=== PATIENT | male | born 1975 | race African-American/Black ===

== ENCOUNTER 2018-05-12 15:38 | Emergency (ER) | payer SELFPAY ==
[2018-05-12 16:14] LABS: ABSOLUTE EOSINOPHILS # (AUTO) 0.1 10^3/uL (0.0-0.6); ABSOLUTE LYMPHOCYTES (AUTO) 1.3 10^3/uL (0.5-4.7); ABSOLUTE MONOCYTES (AUTO) 0.4 10^3/uL (0.1-1.4); ABSOLUTE NEUT (AUTO) 1.9 10^3/uL (1.7-8.2); BASOPHILS % (AUTO) 0.8 % (0-2); EOSINOPHILS % (AUTO) 2.5 % (0-6); HEMOGLOBIN 14.4 g/dL (13.5-17.0); LYMPHOCYTES % (AUTO) 35.2 % (13-45); MEAN CORPUSCULAR HEMOGLOBIN 31.9 pg (27.0-33.4); MEAN CORPUSCULAR HGB CONC 34.3 g/dL (32.0-36.0); MEAN CORPUSCULAR VOLUME 93 fl (80-97); MONOCYTES % (AUTO) 10.9 % (3-13); PLATELET COUNT 230 10^3/uL (150-450); RED BLOOD COUNT 4.52 10^6/uL (4.35-5.55); RED CELL DISTRIBUTION WIDTH 13.4 % (11.5-14.0); SEGMENTED NEUTROPHILS % (AUTO) 50.6 % (42-78); TOTAL CELLS COUNTED % (AUTO) 100 %; WHITE BLOOD COUNT 3.8 10^3/uL (4.0-10.5)
[2018-05-12 16:23] LABS: INTERNATIONAL RATION (INR) 0.96; PROTHROMBIN TIME 13.3 SEC (11.4-15.4)
[2018-05-12 16:25] LABS: ALANINE AMINOTRANSFERASE 26 U/L (21-72); ALBUMIN 4.8 g/dL (3.5-5.0); ALKALINE PHOSPHATASE 71 U/L (38-126); ANION GAP 10 (5-19); ASPARTATE AMINO TRANSFERASE 35 U/L (17-59); BILIRUBIN,DIRECT 0.2 mg/dL (0.0-0.4); BILIRUBIN,TOTAL 0.7 mg/dL (0.2-1.3); BLOOD UREA NITROGEN 14 mg/dL (7-20); CARBON DIOXIDE 30 mmol/L (22-30); CHLORIDE 104 mmol/L (98-107); CREATINE KINASE 449 U/L (55-170); GLUCOSE 66 mg/dL (75-110); POTASSIUM 4.2 mmol/L (3.6-5.0); TOTAL PROTEIN 7.6 g/dL (6.3-8.2)
--- NOTE | 2018-05-12 16:29 | RADIOLOGY REPORT (SQ) ---
EXAM DESCRIPTION: CHEST SINGLE VIEW COMPLETED DATE/TIME: 05/12/2018 4:15 pm REASON FOR STUDY: cp COMPARISON: 07/04/2013 EXAM PARAMETERS: NUMBER OF VIEWS: One view. TECHNIQUE: Single frontal radiographic view of the chest acquired. RADIATION DOSE: NA LIMITATIONS: None. FINDINGS: LUNGS AND PLEURA: No opacities, masses or pneumothorax. No pleural effusion. MEDIASTINUM AND HILAR STRUCTURES: No masses. Contour normal. HEART AND VASCULAR STRUCTURES: Heart normal in size. Normal vasculature. BONES: No acute findings. HARDWARE: None in the chest. OTHER: No other significant finding. IMPRESSION: NO ACUTE RADIOGRAPHIC FINDING IN THE CHEST. TECHNICAL DOCUMENTATION: JOB ID: [id number] [employer]- All Rights Reserved Reading location - IP/workstation name: [email or web address]
[2018-05-12 16:37] LABS: CREATINE KINASE MB 5.09 ng/mL (<4.55)
[2018-05-12 16:38] LABS: TROPONIN I < 0.012 ng/mL
[2018-05-12] MEDS ORDERED: IPRATROPIUM/ALBUTEROL 0.5-2.5 MG/3 ML AMPUL NEB ONE (17:36)
--- NOTE | 2018-05-12 18:26 | ER Document Report ---
ED General - General Chief Complaint: Chest Pain Stated Complaint: CHEST PAIN/ARM PAIN Time Seen by Provider: 05/12/18 15:47 Primary Care Provider: LORI AGARWAL MD [ACTIVE STAFF] - 05/13/18 Mode of Arrival: Ambulatory Information source: Patient Notes: This is a 42-year-old man with no significant medical problems who presents to the emergency room with some left chest wall pain. Patient grabs the pain is sharp. He states it is worse when he raises his hands and stretches out his chest wall. He denies any significant shortness of breath. He denies any fever, abdominal pain. He denies any exertional pain. The pain started when he was at work. 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 He does state he has had this pain before in the past. Currently he does not have any pain. TRAVEL OUTSIDE OF THE [place] IN LAST 30 DAYS: No - HPI Onset: Just prior to arrival Onset/Duration: Gradual Quality of pain: Sharp Severity: Moderate Pain Level: Denies Associated symptoms: Chest pain. denies: Fever, Shortness of breath Exacerbated by: Movement Relieved by: Remaining still Similar symptoms previously: Yes Recently seen / treated by doctor: No - Related Data Allergies/Adverse Reactions: No Known Allergies Allergy (Verified 05/12/18 15:51) Past Medical History - General Information source: Patient - Social History Smoking Status: Current Every Day Smoker Cigarette use (# per day): Yes - 1 pack/day Chew tobacco use (# tins/day): No Smoking Education Provided: Yes - 5-10 minutes Frequency of alcohol use: None Drug Abuse: None Lives with: Family Family History: None, Other - Asthma Patient has suicidal ideation: No Patient has homicidal ideation: No - Medical History Medical History: Negative Renal/ Medical History: Denies: Hx Peritoneal Dialysis Surgical Hx: Negative - Immunizations Hx Diphtheria, Pertussis, Tetanus Vaccination: Yes Review of Systems - Review of Systems Constitutional: denies: Chills, Fever EENT: No symptoms reported Cardiovascular: See HPI Respiratory: No symptoms reported Gastrointestinal: No symptoms reported Genitourinary: No symptoms reported Male Genitourinary: No symptoms reported Musculoskeletal: See HPI Skin: No symptoms reported Hematologic/Lymphatic: No symptoms reported Neurological/Psychological: No symptoms reported Physical Exam - Vital signs Vitals: Temp Pulse Resp BP Pulse Ox 98.6 F 87 16 144/95 H 98 05/12/18 15:48 05/12/18 15:48 05/12/18 15:48 05/12/18 15:48 05/12/18 15:48 Notes: Physical exam: GENERAL: The 2-year-old man, alert and oriented x3, no acute distress. Vital signs are stable. He does have borderline high blood pressure. His oxygenation is 97% on room air. HEAD: Atraumatic, normocephalic. EYES: Pupils equal round and reactive to light, extraocular movements intact, sclera anicteric, conjunctiva are normal. ENT: TMs normal, nares patent, oropharynx clear without exudates. Moist mucous membranes. NECK: Normal range of motion, supple without obvious mass or JVD. LUNGS: Breath sounds clear to auscultation bilaterally and equal. No wheezes rales or rhonchi. Chest wall: Patient does have a little bit of tenderness in the left chest wall. HEART: Regular rate and rhythm without murmurs, rubs or gallops. ABDOMEN: Soft, normoactive bowel sounds. No tenderness to palpation. No guarding, no rebound. No masses appreciated. EXTREMITIES: Normal range of motion, no pitting or edema. No clubbing or cyanosis. NEUROLOGICAL: Cranial nerves II through XII grossly intact. Normal speech, moving all extremities. PSYCH: Normal mood, normal affect. SKIN: Warm, Dry, normal turgor, no rashes or lesions noted. Course - Re-evaluation Re-evalutation: 05/12/18 18:23 About a long discussion with the patient about smoking cessation. He is going to think about it. As far as his chest discomfort, a lot of this is musculoskeletal. He does have a borderline elevated blood pressure and he does smoke cigarettes. His heart score is 2 which is low risk. I did discuss the case with Dr. Agarwal who said he would have be happy to see the patient in his office for a stress test. He gave me his cell phone to give to the patient so that patient can call him tomorrow. - Vital Signs Vital signs: Temp Pulse Resp BP Pulse Ox 98.6 F 87 16 144/95 H 98 05/12/18 15:48 05/12/18 15:48 05/12/18 15:48 05/12/18 15:48 05/12/18 15:48 - Laboratory Result Diagrams: 05/12/18 16:04 05/12/18 16:04 Laboratory results interpreted by me: 05/12/18 05/12/18 05/12/18 16:04 16:04 16:04 WBC 3.8 L Glucose 66 L Creatine Kinase 449 H CK-MB (CK-2) 5.09 H - Diagnostic Test Radiology reviewed: Image reviewed, Reports reviewed - Chest x-ray shows no infiltrates - EKG Interpretation by Me Rate: Normal Rhythm: NSR - EKG shows normal sinus rhythm with a ventricular rate of 87, no acute ST-T wave changes Discharge - Discharge Clinical Impression: Chest wall pain, Borderline hypertension Condition: Stable Disposition: HOME, SELF-CARE Additional Instructions: As we discussed, I want you to call Dr. Agarwal ("Dr Oropeza") tomorrow at [phone] and leave a message on his cell phone. Tell him who you are and tell him that you are in the emergency room and Dr. Lundberg had called him and discussed the case on and the ER doctor wanted him seen for stress test. Otherwise, I want you to take it easy over the next few days. You can take an aspirin a day. You can also take some ibuprofen if you get chest wall discomfort. I want you to think about cutting down on the smoking for all the reasons that we talked about. Return to the emergency room if you think you are getting worse, starting have shortness of breath or worsening pain. Forms: Elevated Blood Pressure, Return to Work Referrals: LORI AGARWAL MD [ACTIVE STAFF] - 05/13/18
[2018-05-12 19:38] VITALS: BP 141/98
--- NOTE | 2018-05-12 19:52 | EKG REPORT ---
SEVERITY:- ABNORMAL ECG - SINUS RHYTHM LEFT AXIS DEVIATION LEFT VENTRICULAR HYPERTROPHY : Confirmed by: Hawk Patel MD 12-May-2018 19:51:24
== END 2018-05-12 19:38 | disposition home or self-care (01) ==
LOC: ER 15:38
DX: R07.89 Other chest pain (principal); R03.0 Elevated blood-pressure reading, without diagnosis of hypertension; F17.210 Nicotine dependence, cigarettes, uncomplicated; Z71.6 Tobacco abuse counseling
CPT/HCPCS: 93005; 99406; 94640; 99284; 36415; 82553; 82550; 85025; 85610; 80053; 84484; 71045; 93010; J7620

== ENCOUNTER 2018-05-23 06:14 | Emergency (ER) | payer SELFPAY ==
[2018-05-23] MEDS ORDERED: ASPIRIN 81 MG TABLET, CHEWABLE PO ONE (06:40)
[2018-05-23 06:50] LABS: ABSOLUTE EOSINOPHILS # (AUTO) 0.1 10^3/uL (0.0-0.6); ABSOLUTE LYMPHOCYTES (AUTO) 1.4 10^3/uL (0.5-4.7); ABSOLUTE MONOCYTES (AUTO) 0.5 10^3/uL (0.1-1.4); ABSOLUTE NEUT (AUTO) 2.8 10^3/uL (1.7-8.2); BASOPHILS % (AUTO) 0.8 % (0-2); HEMATOCRIT 43.1 % (37.9-51.0); HEMOGLOBIN 14.6 g/dL (13.5-17.0); LYMPHOCYTES % (AUTO) 28.6 % (13-45); MEAN CORPUSCULAR HEMOGLOBIN 31.2 pg (27.0-33.4); MEAN CORPUSCULAR VOLUME 92 fl (80-97); MONOCYTES % (AUTO) 9.5 % (3-13); PLATELET COUNT 220 10^3/uL (150-450); RED CELL DISTRIBUTION WIDTH 13.1 % (11.5-14.0); SEGMENTED NEUTROPHILS % (AUTO) 58.1 % (42-78); TOTAL CELLS COUNTED % (AUTO) 100 %; WHITE BLOOD COUNT 4.9 10^3/uL (4.0-10.5)
--- NOTE | 2018-05-23 06:57 | EKG REPORT ---
SEVERITY:- ABNORMAL ECG - SINUS RHYTHM LEFT VENTRICULAR HYPERTROPHY : Confirmed by: David Watkins 23-May-2018 06:57:30
[2018-05-23 07:14] LABS: ALANINE AMINOTRANSFERASE 50 U/L (21-72); ALBUMIN 4.7 g/dL (3.5-5.0); ALKALINE PHOSPHATASE 75 U/L (38-126); ANION GAP 10 (5-19); ASPARTATE AMINO TRANSFERASE 50 U/L (17-59); BILIRUBIN,DIRECT 0.2 mg/dL (0.0-0.4); BILIRUBIN,TOTAL 1.1 mg/dL (0.2-1.3); BLOOD UREA NITROGEN 13 mg/dL (7-20); CALCIUM 9.4 mg/dL (8.4-10.2); CARBON DIOXIDE 26 mmol/L (22-30); CHLORIDE 106 mmol/L (98-107); CREATINE KINASE 472 U/L (55-170); GLUCOSE 114 mg/dL (75-110); POTASSIUM 3.8 mmol/L (3.6-5.0); TOTAL PROTEIN 7.5 g/dL (6.3-8.2)
--- NOTE | 2018-05-23 07:18 | RADIOLOGY REPORT (SQ) ---
EXAM DESCRIPTION: XR CHEST 1 VIEW COMPLETED DATE/TME: 05/23/2018 06:40 CLINICAL HISTORY: chest pain COMPARISON: 05/12/2018 FINDINGS: Single frontal view of the chest. Leads overlie the chest. The cardiomediastinal silhouette has normal size and contour. No consolidation, pneumothorax, or pleural effusion. No displaced rib fractures identified. Upper abdominal soft tissues are unremarkable. IMPRESSION: 1. No acute pulmonary process identified.
[2018-05-23 07:20] LABS: CREATINE KINASE MB 5.07 ng/mL (<4.55); TROPONIN I < 0.012 ng/mL
[2018-05-23] MEDS ORDERED: NORMAL SALINE 1000 ML 1,000 ML IV ONE (07:37)
--- NOTE | 2018-05-23 10:33 | ER Document Report ---
ED General - General Chief Complaint: Chest Pain Stated Complaint: CHEST PAIN Time Seen by Provider: 05/23/18 07:10 Primary Care Provider: LORI AGARWAL MD [ACTIVE STAFF] - Follow up as needed SONYA GARSIA MD [ACTIVE STAFF] - Follow up as needed Notes: Patient is a 42-year-old male presents the emergency department complaining of generalized left chest pain. Patient states he was to this facility a few days ago for the same. States he was told to follow-up with cardiology and he has not. Patient states the pain in his left chest has been intermittent ever since. 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 Patient states this morning the pain was constant which is why he presents to the emergency room. Patient is currently pain-free at this time. Patient denies any shortness of breath or diaphoresis during these episodes. Past medical history: Hypertension Medications: None Allergies: None Patient states he believes that his biological father at age 45 from a myocardial infarction. Patient is also admitting to being a daily smoker. TRAVEL OUTSIDE OF THE [place] IN LAST 30 DAYS: No - Related Data Allergies/Adverse Reactions: No Known Allergies Allergy (Verified 05/23/18 06:46) Past Medical History - General Information source: Patient - Social History Smoking Status: Current Every Day Smoker Frequency of alcohol use: None Drug Abuse: None Family History: CAD, Other - Asthma Patient has suicidal ideation: No Patient has homicidal ideation: No Renal/ Medical History: Denies: Hx Peritoneal Dialysis - Immunizations Hx Diphtheria, Pertussis, Tetanus Vaccination: Yes Review of Systems - Review of Systems Constitutional: No symptoms reported EENT: No symptoms reported Cardiovascular: See HPI Respiratory: See HPI. denies: Cough, Short of breath Gastrointestinal: No symptoms reported Genitourinary: No symptoms reported Male Genitourinary: No symptoms reported Musculoskeletal: See HPI Skin: No symptoms reported Hematologic/Lymphatic: No symptoms reported Neurological/Psychological: No symptoms reported Physical Exam - Vital signs Vitals: Pulse Resp BP Pulse Ox 78 16 166/100 H 100 05/23/18 06:15 05/23/18 06:15 05/23/18 06:15 05/23/18 06:15 - Notes Notes: GENERAL: Alert, interacts well. No acute distress. HEAD: Normocephalic, atraumatic. EYES: Pupils equal, round, and reactive to light. Extraocular movements intact. ENT: Oral mucosa moist, tongue midline. NECK: Full range of motion. Supple. Trachea midline. LUNGS: Clear to auscultation bilaterally, no wheezes, rales, or rhonchi. No respiratory distress. HEART: Regular rate and rhythm. No murmur Chest: No crepitus felt, no ecchymosis or erythema noted anterior posterior chest wall. ABDOMEN: Soft, non-tender. Non-distended. Bowel sounds present in all 4 quadrants. EXTREMITIES: Moves all 4 extremities spontaneously. No edema, normal radial and dorsalis pedis pulses bilaterally. No cyanosis. BACK: no cervical, thoracic, lumbar midline tenderness. No saddle anesthesia, normal distal neurovascular exam. NEUROLOGICAL: Alert and oriented x3. Normal speech. cranial nerves II through XII grossly intact PSYCH: Normal affect, normal mood. SKIN: Warm, dry, normal turgor. No rashes or lesions noted. Course - Re-evaluation Re-evalutation: 05/23/18 10:30 Patient is a 42-year-old male presents the emergency department for what appears to be musculoskeletal left chest pain. Patient is currently chest pain-free at this time. When patient does move his arms up and down the pain does return and also hurts upon deep palpation of the left intercostal muscle region. Reviewing past patient charts it is known in that the provider that saw the patient did speak with Dr. Khan about an outpatient stress test. Discussed following up with Dr. Berger and his personal phone number was given to the patient. Patient continues to state that he has not tried to call cardiology because "a lot is going on in my life." Patient continues to be chest pain-free at this time. In looking back at Previous visits patient was always hypertensive upon arrival to the emergency room. Discussed use of amlodipine for his relative hypertension and need to follow-up with a primary care provider. Patient states he does have insurance so primary care providers phone numbers will be provided for him. Discussed his need to quit smoking. Patient states he understands but most likely will not quit smoking. Patient's current heart score is a 1 due to his hypertension and family history. Patient's story and physical exam is consistent with a musculoskeletal chest pain. Patient's EKG shows no ST segment elevations or depressions. Patient has had 2 troponins in the emergency room and they were both negative. Patient was treated with a liter of normal saline solution for his increase in CK. Discussed this case with my attending Dr. Ashton who suggested starting the patient on amlodipine discussing with him close follow-up with cardiology. Patient voices understanding and is stable for discharge. 05/23/18 10:37 Patient's initial EKG shows a sinus rhythm rate of 77, QTc 453, with left ventricular hypertrophy noted. No ST segment elevations or depressions noted Patient's repeat EKG done along with repeat troponin continues to show sinus rhythm with a rate of 72 with a QTC 478, left ventricular hypertrophy, no ST segment elevations or depressions noted. Patient continues with inverted T waves in inferior leads, Discussed with Dr. Ashton who continues to recommend Norvasc and f/u out pt with Cardiology. - Vital Signs Vital signs: Temp Pulse Resp BP Pulse Ox 78 20 145/98 H 100 05/23/18 06:15 05/23/18 10:01 05/23/18 10:00 05/23/18 10:01 - Laboratory Result Diagrams: 05/23/18 06:34 05/23/18 06:34 Laboratory results interpreted by me: 05/23/18 05/23/18 06:34 06:34 Glucose 114 H Creatine Kinase 472 H CK-MB (CK-2) 5.07 H Discharge - Discharge Clinical Impression: Chest pain Qualifiers: Chest pain type: unspecified Qualified Code(s): R07.9 - Chest pain, unspecified Hypertension Qualifiers: Hypertension type: unspecified Qualified Code(s): I10 - Essential (primary) hypertension Condition: Stable Disposition: HOME, SELF-CARE Instructions: Chest Pain of Unclear Cause ([facility]), High Blood Pressure ([facility]) Additional Instructions: As we discussed you have been seen and treated in the emergency department for your left chest pain. 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 His information will be provided in this packet. It is also important that you take medications as prescribed and follow-up with her primary care provider. It is also important that you quit smoking. Please make sure you have proper follow-up and please return to the emergency room should you have any other concerning symptoms. Prescriptions: Amlodipine Besylate [Norvasc 2.5 mg Tablet] 2.5 mg PO DAILY #30 tablet Forms: Elevated Blood Pressure, Return to Work Referrals: LORI AGARWAL MD [ACTIVE STAFF] - Follow up as needed SONYA GARSIA MD [ACTIVE STAFF] - Follow up as needed
[2018-05-23 10:34] VITALS: BP 145/98
--- NOTE | 2018-05-23 23:20 | EKG REPORT ---
SEVERITY:- ABNORMAL ECG - SINUS RHYTHM LEFT AXIS DEVIATION LEFT VENTRICULAR HYPERTROPHY NONSPECIFIC T ABNORMALITIES, INFERIOR LEADS BORDERLINE PROLONGED QT INTERVAL : Confirmed by: Deya Gray MD 23-May-2018 23:20:33
== END 2018-05-23 10:54 | disposition home or self-care (01) ==
LOC: ER 06:14
DX: R07.9 Chest pain, unspecified (principal); I10 Essential (primary) hypertension; F17.200 Nicotine dependence, unspecified, uncomplicated; J45.909 Unspecified asthma, uncomplicated
CPT/HCPCS: 93005; 99285; 96360; 36415; 82553; 82550; 85025; 80053; 84484; 71045; 93010; J7030

== ENCOUNTER 2019-02-28 06:41 | Emergency (ER) | payer OTHER ==
--- NOTE | 2019-02-28 08:46 | ER Document Report ---
ED Hand/Wrist Injury - General Chief Complaint: Wrist Pain Stated Complaint: FALL-RIGHT WRIST PAIN Information source: Patient TRAVEL OUTSIDE OF THE [place] IN LAST 30 DAYS: No - HPI Injury to: Wrist. No: Arm, Elbow, Forearm, Hand, Palm, Thumb, Index finger, Middle finger, Ring finger, Small finger Onset: Yesterday Where: Work. No: Home, Indoors, Neighbor's, Half-Way, Outdoors, Public place, School, Sports, Other Timing: Constant. No: Waxing and waning, Still present, Gone now, Better, Worse, Location changes Quality of pain: Achy. denies: No pain, Burning, Cramping, Dull, Fullness, Pressure, Sharp, Stabbing, Throbbing, Other Severity: Moderate Pain Level: 2 Context: Blow, Fall - Related Data Allergies/Adverse Reactions: No Known Allergies Allergy (Verified 02/28/19 08:16) Past Medical History - Social History Smoking Status: Current Every Day Smoker Chew tobacco use (# tins/day): No Frequency of alcohol use: None Drug Abuse: None Family History: CAD, Other - Asthma Patient has suicidal ideation: No Patient has homicidal ideation: No - Past Medical History Cardiac Medical History: Reports: Hx Hypertension Renal/ Medical History: Denies: Hx Peritoneal Dialysis - Immunizations Hx Diphtheria, Pertussis, Tetanus Vaccination: Yes Review of Systems - Review of Systems Constitutional: denies: No symptoms reported, See HPI, Chills, Diaphoresis, Fever, Malaise, Weakness, Other, Weight gain, Weight loss, Recent illness Musculoskeletal: Joint pain. denies: No symptoms reported, See HPI, Back pain, Gout, Joint swelling, Muscle pain, Muscle stiffness, Neck pain, Deformity, Leg swelling, Ankle swelling, Other -: Yes All other systems reviewed and negative Physical Exam - Vital signs Notes: Right upper extremity: Pain over the distal ulna and radius. Pain in the anatomical snuffbox. Range of motion in the hands with some swelling noted over the hand but no pain to palpation pain proximal to this. Neuro patient is neurovascularly intact good pulses radial and ulnar normal sensation to light touch and pain in all roots of the hand normal flexion extension thumb to small finger opposition interosseous strength and movement. Course - Diagnostic Test Radiology reviewed: Image reviewed, Reports reviewed Discharge - Discharge Clinical Impression: Right wrist sprain Qualifiers: Encounter type: initial encounter Qualified Code(s): S63.501A - Unspecified sprain of right wrist, initial encounter Condition: Stable Disposition: HOME, SELF-CARE Instructions: Wrist Sprain ([facility]) Additional Instructions: Ice and a towel for 20 minutes 3 times a day if pain persists forth more than 2 days return for re-x-ray. Prescriptions: Diclofenac Sodium 75 mg PO Q12 PRN #30 tablet.dr SMART Reason: Pain Scale Of 3 Forms: Return to Work
--- NOTE | 2019-02-28 09:47 | RADIOLOGY REPORT (SQ) ---
EXAM DESCRIPTION: WRIST RIGHT 3 VIEWS COMPLETED DATE/TIME: 02/28/2019 9:16 am REASON FOR STUDY: fall, pain COMPARISON: None. NUMBER OF VIEWS: Three views. TECHNIQUE: AP, lateral, and oblique radiographic images acquired of the right wrist. LIMITATIONS: None. FINDINGS: MINERALIZATION: Normal. BONES: No acute fracture or dislocation. No worrisome bone lesions. Normal alignment. SOFT TISSUES: Mild soft tissue swelling about the wrist. No radiopaque foreign body. OTHER: No other significant finding. IMPRESSION: Mild soft tissue swelling about the wrist without evidence of acute bony abnormality. TECHNICAL DOCUMENTATION: JOB ID: [id number] [employer]- All Rights Reserved Reading location - IP/workstation name: [email or web address]
[2019-02-28 11:11] VITALS: BP 139/81
== END 2019-02-28 11:19 | disposition home or self-care (01) ==
LOC: ER 06:41
DX: S63.501A Unspecified sprain of right wrist, initial encounter (principal); M79.89 Other specified soft tissue disorders; W17.89XA Other fall from one level to another, initial encounter; F17.200 Nicotine dependence, unspecified, uncomplicated; I10 Essential (primary) hypertension
CPT/HCPCS: 73110; L3908; 99283

== ENCOUNTER 2019-06-12 21:10 | Emergency (ER) | payer SELFPAY ==
[2019-06-12] MEDS ORDERED: MAG HYDROX/AL HYDROX/SIMETH SUSP 30 ML UDCUP PO ONE (22:16)
[2019-06-12] MEDS ORDERED: ONDANSETRON 4 MG TAB.RAPDIS PO ONE (22:16)
[2019-06-12] MEDS ORDERED: METOCLOPRAMIDE HCL ORAL SOLN 10 MG/10 ML UDCUP PO ONE (22:16)
[2019-06-12] MEDS ORDERED: LIDOCAINE 2% VISCOUS SOLN 15 ML UDCUP PO ONE (22:16)
[2019-06-12] MEDS ORDERED: ONDANSETRON ODT 4 MG TAB (6 TAB/ER DISP) PO PRN (22:17)
[2019-06-12] MEDS ORDERED: IBUPROFEN 800 MG TABLET PO ONE (22:17)
--- NOTE | 2019-06-12 23:51 | ER Document Report ---
HPI - HPI Time Seen by Provider: 06/12/19 22:08 Pain Level: 5 Notes: Patient is a 43-year-old male presenting to the emergency department with abdominal pain, nausea, vomiting, diarrhea and low-grade fever. He presents with his 2 children who also have nausea vomiting and diarrhea. He reports abdominal pain only comes on when he is about to vomit or have diarrhea. He reports he has had a fever at home but he is not sure what the actual temperature was. He has not taken any medications for symptoms. He reports he has probably vomited 3-4 times today and has had 3-4 episodes of diarrhea. - REPRODUCTIVE Reproductive: DENIES: : Past Medical History - General Information source: Patient - Social History Smoking Status: Current Every Day Smoker Chew tobacco use (# tins/day): No Frequency of alcohol use: Rare Drug Abuse: None Family History: CAD, Other - Asthma Patient has suicidal ideation: No Patient has homicidal ideation: No - Past Medical History Cardiac Medical History: Reports: Hx Hypertension Renal/ Medical History: Denies: Hx Peritoneal Dialysis - Immunizations Hx Diphtheria, Pertussis, Tetanus Vaccination: Yes Vertical Provider Document - CONSTITUTIONAL Notes: PHYSICAL EXAMINATION: GENERAL: Well-appearing, well-nourished and in no acute distress. HEAD: Atraumatic, normocephalic. EYES: Pupils equal round and reactive to light, extraocular movements intact, sclera anicteric, conjunctiva are normal. ENT: Nares patent, oropharynx clear without exudates. Moist mucous membranes. NECK: Normal range of motion, supple without lymphadenopathy LUNGS: Breath sounds clear to auscultation bilaterally and equal. No wheezes rales or rhonchi. HEART: Regular rate and rhythm without murmurs ABDOMEN: Soft, nontender, nondistended abdomen. No guarding, no rebound. No masses appreciated. Musculoskeletal: Normal range of motion, no pitting or edema. No cyanosis. NEUROLOGICAL: Cranial nerves grossly intact. Normal speech, normal gait. Normal sensory, motor exams PSYCH: Normal mood, normal affect. SKIN: Warm, Dry, normal turgor, no rashes or lesions noted. - INFECTION CONTROL TRAVEL OUTSIDE OF THE [place] IN LAST 30 DAYS: No Course - Re-evaluation Re-evalutation: Patient with likely viral gastroenteritis considering that patient's 2 children are with him and also sick with similar symptoms. He appears well, nontoxic. He does have a temperature of 99.3 here. He does report some pain in the esophageal area that feels like a burning pain. This is likely due to vomiting. He will be given a GI cocktail and as long as his symptoms resolve he will be discharged home on Zofran. Patient is agreeable to this plan. - Vital Signs Vital signs: Temp Pulse Resp BP Pulse Ox 99.0 F 113 H 20 132/83 H 95 06/12/19 21:16 06/12/19 21:16 06/12/19 21:16 06/12/19 21:16 06/12/19 21:16 - EKG Interpretation by Fl EKG shows normal: Sinus rhythm - No ST segment elevations or depressions to suggest ischemia Rate: Tachycardia - rate 100 [place]/QRS: Left axis deviation Discharge - Discharge Clinical Impression: Gastritis, Gastroenteritis Condition: Stable Disposition: HOME, SELF-CARE Additional Instructions: You have been seen in the Emergency Department (ED) today for nausea and vomiting. Your symptoms today are most likely due to a virus. Please purchase [id number] omeprazole and take 1 tablet in the morning and 1 tablet in the evening for the next several days to help with the burning in your chest. You have been prescribed Zofran; please use as prescribed as needed for your nausea. Follow up with your doctor as soon as possible regarding today's emergent visit and your symptoms of nausea. Return to the Emergency Department (ED) if you develop abdominal pain, bloody vomiting, bloody diarrhea, if you are unable to tolerate fluids due to vomiting, or if you develop other symptoms that concern you. Prescriptions: Ondansetron [Zofran Odt 4 mg Tablet] 1 - 2 tab PO Q4H PRN #15 tab.rapdis PRN Reason: For Nausea/Vomiting Forms: Return to Work, Treatment of Relative/Child
[2019-06-12 23:54] VITALS: BP 117/81
--- NOTE | 2019-06-13 06:48 | EKG REPORT ---
SEVERITY:- ABNORMAL ECG - SINUS TACHYCARDIA PROBABLE LEFT ATRIAL ABNORMALITY LEFT AXIS DEVIATION LEFT VENTRICULAR HYPERTROPHY : Confirmed by: Hawk Patel MD 13-Jun-2019 06:48:00
== END 2019-06-12 23:50 | disposition home or self-care (01) ==
LOC: ER 21:10
DX: K29.70 Gastritis, unspecified, without bleeding (principal); K52.9 Noninfective gastroenteritis and colitis, unspecified; R10.9 Unspecified abdominal pain; R11.2 Nausea with vomiting, unspecified; R50.9 Fever, unspecified; F17.200 Nicotine dependence, unspecified, uncomplicated; I10 Essential (primary) hypertension
CPT/HCPCS: 93005; 99284; 93010; S0119; J3490

== ENCOUNTER 2020-01-26 01:03 | Emergency (ER) | payer SELFPAY ==
--- NOTE | 2020-01-26 01:32 | ER Document Report ---
ED Medical Screen (RME) - General Chief Complaint: Rib Pain Stated Complaint: RIGHT RIB PAIN/SHORTNESS OF BREATH Time Seen by Provider: 01/26/20 01:30 Mode of Arrival: Ambulatory Information source: Patient Notes: 44-year-old -[place] male coming in today with right-sided chest pain. No trauma. Tonight having pain in the right anterior ribs but also having pressure in the left upper chest with some mild associated shortness of breath. General exam: Looks uncomfortable Chest: Right anterior chest wall tenderness to palpation. No crepitus. Cardiac regular rate and rhythm Pulmonary clear to auscultation Abdomen nontender Neuro no focal deficits I have greeted and performed a rapid initial assessment of this patient. A comprehensive ED assessment and evaluation of the patient, analysis of test results and completion of the medical decision making process will be conducted by additional ED providers. TRAVEL OUTSIDE OF THE [place] IN LAST 30 DAYS: No - Related Data Allergies/Adverse Reactions: No Known Allergies Allergy (Verified 01/26/20 01:27) Past Medical History - Past Medical History Cardiac Medical History: Reports: Hx Hypertension Renal/ Medical History: Denies: Hx Peritoneal Dialysis - Immunizations Hx Diphtheria, Pertussis, Tetanus Vaccination: Yes Physical Exam - Vital signs Vitals: Temp Pulse Resp BP Pulse Ox 98.6 F 106 H 13 121/68 98 01/26/20 01:08 01/26/20 01:08 01/26/20 01:08 01/26/20 01:08 01/26/20 01:08 Course - Vital Signs Vital signs: Temp Pulse Resp BP Pulse Ox 98.6 F 106 H 13 121/68 98 01/26/20 01:08 01/26/20 01:08 01/26/20 01:08 01/26/20 01:08 01/26/20 01:08
[2020-01-26 06:10] LABS: ABSOLUTE EOSINOPHILS # (AUTO) 0.1 10^3/uL (0.0-0.6); ABSOLUTE LYMPHOCYTES (AUTO) 1.4 10^3/uL (0.5-4.7); ABSOLUTE MONOCYTES (AUTO) 0.5 10^3/uL (0.1-1.4); ABSOLUTE NEUT (AUTO) 1.9 10^3/uL (1.7-8.2); BASOPHILS % (AUTO) 0.8 % (0-2); EOSINOPHILS % (AUTO) 2.5 % (0-6); HEMATOCRIT 41.9 % (37.9-51.0); HEMOGLOBIN 14.3 g/dL (13.5-17.0); LYMPHOCYTES % (AUTO) 35.8 % (13-45); MEAN CORPUSCULAR HEMOGLOBIN 32.1 pg (27.0-33.4); MEAN CORPUSCULAR HGB CONC 34.2 g/dL (32.0-36.0); MEAN CORPUSCULAR VOLUME 94 fl (80-97); MONOCYTES % (AUTO) 11.7 % (3-13); PLATELET COUNT 216 10^3/uL (150-450); RED BLOOD COUNT 4.47 10^6/uL (4.35-5.55); RED CELL DISTRIBUTION WIDTH 13.3 % (11.5-14.0); SEGMENTED NEUTROPHILS % (AUTO) 49.2 % (42-78); TOTAL CELLS COUNTED % (AUTO) 100 %; WHITE BLOOD COUNT 3.9 10^3/uL (4.0-10.5)
[2020-01-26 06:27] LABS: ALBUMIN 4.6 g/dL (3.5-5.0); ALKALINE PHOSPHATASE 70 U/L (38-126); ANION GAP 13 (5-19); ASPARTATE AMINO TRANSFERASE 37 U/L (17-59); BILIRUBIN,DIRECT 0.2 mg/dL (0.0-0.4); BILIRUBIN,TOTAL 0.4 mg/dL (0.2-1.3); BLOOD UREA NITROGEN 15 mg/dL (7-20); CALCIUM 9.6 mg/dL (8.4-10.2); CARBON DIOXIDE 23 mmol/L (22-30); CHLORIDE 106 mmol/L (98-107); CREATINE KINASE 459 U/L (55-170); GLUCOSE 117 mg/dL (75-110); POTASSIUM 4.2 mmol/L (3.6-5.0); TOTAL PROTEIN 7.3 g/dL (6.3-8.2)
[2020-01-26 06:39] LABS: CREATINE KINASE MB 5.93 ng/mL (<4.55)
[2020-01-26 06:44] LABS: TROPONIN I < 0.012 ng/mL
--- NOTE | 2020-01-26 07:27 | RADIOLOGY REPORT (SQ) ---
CHEST X-RAY 2 view on 01/26/2020 at 7:09 AM CLINICAL INDICATION: Cough, bilateral rib pain COMPARISON: 05/23/2018 FINDINGS: The lungs are clear. Probable nipple shadow is noted on the left. Consider repeat PA view with nipple markers. Cardiac, hilar and mediastinal contours are within normal limits. Pulmonary vascularity is within normal limits. No bony abnormality is noted. IMPRESSION: Probable nipple shadow on the left, consider repeat PA view with nipple markers. Otherwise no acute disease.
--- NOTE | 2020-01-26 10:43 | ER Document Report ---
Entered by YARITZA GALLEGOS SCRIBE 01/26/20 0656 Acting as scribe for:YAQUELIN SYLVESTER MD ED General - General Chief Complaint: Rib Pain Stated Complaint: RIGHT RIB PAIN/SHORTNESS OF BREATH Time Seen by Provider: 01/26/20 01:30 Primary Care Provider: ELIZ SCOTT [Primary Care Provider] - Follow up as needed Mode of Arrival: Ambulatory Information source: Patient, Relative - Notes: This 44 year old male patient presents to the ED today with complaints of right rib pain and left-sided chest pain that started x2 weeks ago. Patient states that his ribs hurt and he becomes short of breath when he lays on his right side. 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 He notes that the pain comes and goes and lasts for approximately x30-45 minutes at a time. He denies any chest pain at this time, but does report a headache. Denies recent injury, fever, chills, abdominal pain, sore throat, dizziness, sick contacts, of known COVID exposure. at bedside reports that she made the patient come in last night because he was complaining of a numbing/tingling sensation when he laid on his right side. She also mentions that the patient had some nausea/vomiting since being in the department and that he has been having "coughing spells for weeks." He is a current every day smoker and has a history of hypertension. No medications or known allergies. TRAVEL OUTSIDE OF THE [place] IN LAST 30 DAYS: No - Related Data Allergies/Adverse Reactions: No Known Allergies Allergy (Verified 01/26/20 01:27) Past Medical History - General Information source: Patient - Social History Smoking Status: Current Every Day Smoker Smoking Education Provided: No Frequency of alcohol use: Occasional Drug Abuse: None Lives with: Spouse/Significant other Family History: Reviewed & Not Pertinent, CAD, Other - Asthma Patient has suicidal ideation: No Patient has homicidal ideation: No - Past Medical History Cardiac Medical History: Reports: Hx Hypertension - Immunizations Hx Diphtheria, Pertussis, Tetanus Vaccination: Yes Review of Systems - Review of Systems Constitutional: See HPI. denies: Chills, Fever EENT: See HPI. denies: Throat pain Cardiovascular: See HPI, Chest pain. denies: Dizziness Respiratory: See HPI, Short of breath, Other - Right rib pain Gastrointestinal: See HPI, Nausea, Vomiting. denies: Abdominal pain Genitourinary: No symptoms reported Male Genitourinary: No symptoms reported Musculoskeletal: No symptoms reported Skin: No symptoms reported Hematologic/Lymphatic: No symptoms reported Neurological/Psychological: See HPI, Headaches, Numbness, Tingling -: Yes All other systems reviewed and negative Physical Exam - Vital signs Vitals: Temp Pulse Resp BP Pulse Ox 98.6 F 106 H 13 121/68 98 01/26/20 01:08 01/26/20 01:08 01/26/20 01:08 01/26/20 01:08 01/26/20 01:08 - General General appearance: Alert In distress: None - HEENT Head: Normocephalic, Atraumatic Eyes: Normal Extraocular movements intact: Yes Pupils: PERRL Tympanic membrane: Normal. No: Bulging, Injected, Serous effusion Sinus: Normal. No: Tenderness Pharynx: Normal. No: Erythema Neck: Normal, Supple - Respiratory Respiratory status: No respiratory distress Breath sounds: Normal Chest palpation: Tender - Mild right lower rib tenderness to palpation - Cardiovascular Rhythm: Regular Heart sounds: Normal auscultation, S1 appreciated, S2 appreciated Murmur: No Friction rub: No Gallop: None auscultated - Abdominal Inspection: Normal Distension: No distension Bowel sounds: Normal Tenderness: Nontender - Abdomen soft Organomegaly: No organomegaly - Back Back: Normal, Nontender. No: CVA tenderness - Extremities General upper extremity: Normal inspection General lower extremity: Normal inspection. No: Edema - Neurological Neuro grossly intact: Yes Orientation: AAOx4 [place] Coma Scale Eye Opening: Spontaneous [place] Coma Scale Verbal: Oriented [place] Coma Scale Motor: Obeys Commands [place] Coma Scale Total: 15 - Psychological Associated symptoms: Normal affect, Normal mood - Skin Skin Temperature: Warm Skin Moisture: Dry Skin Color: Normal Course - Re-evaluation Re-evalutation: 01/26/20 10:36 Patient resting comfortably not showing any signs of distress. - Vital Signs Vital signs: Temp Pulse Resp BP Pulse Ox 98.6 F 106 H 20 145/99 H 96 01/26/20 01:08 01/26/20 01:08 01/26/20 08:01 01/26/20 08:00 01/26/20 08:01 01/26/20 10:37 Patient has elevated blood pressure due to noncompliance of medications. Patient states he has no doctor and has no current prescription for antihypertensive medications. - Laboratory Result Diagrams: 01/26/20 05:57 01/26/20 05:57 Laboratory results interpreted by me: 01/26/20 01/26/20 01/26/20 05:57 05:57 05:57 WBC 3.9 L Glucose 117 H Creatine Kinase 459 H CK-MB (CK-2) 5.93 H 01/26/20 10:37 Laboratories and elevated CPK at 459 with a CK-MB of 5.9. Patient's glucose is 117 patient has a borderline low white blood cell count 3.9. 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 Denies any trauma that occurred at work. Patient's troponin has been negative x2 EKG does not show any acute ST elevations consistent with any STEMI. - Diagnostic Test Radiology reviewed: Image reviewed, Reports reviewed Radiology results interpreted by me: 01/26/20 10:38 Chest X-Ray 01/26/20 06:58 IMPRESSION: Probable nipple shadow on the left, consider repeat PA view with nipple markers. Otherwise no acute disease. Patient has a chest x-ray shows no acute process. - EKG Interpretation by Me Additional EKG results interpreted by me: 01/26/20 10:39 Twelve-lead EKG shows a normal sinus rhythm rate of 89. Left axis deviation noted and left ventricular hypertrophy with repull changes noted. Anterior Q waves due to left ventricular hypertrophy. OK interval QRS interval and QT interval all within normal limits. No acute STEMI noted. Discharge - Discharge Clinical Impression: Acute chest wall pain, Hypertension Condition: Stable Disposition: HOME, SELF-CARE Instructions: Chest Wall Pain ([facility]), Anti-Inflammatory Medication ([facility]) Prescriptions: Ibuprofen [Motrin 800 mg Tablet] 800 mg PO Q8H PRN #21 tablet PRN Reason: pain Amlodipine Besylate [Norvasc 2.5 mg Tablet] 2.5 mg PO DAILY #30 tablet Forms: Elevated Blood Pressure, Return to Work Referrals: LOCALMD,NO [Primary Care Provider] - Follow up as needed I personally performed the services described in the documentation, reviewed and edited the documentation which was dictated to the scribe in my presence, and it accurately records my words and actions.
[2020-01-26 10:52] VITALS: BP 154/95
--- NOTE | 2020-01-26 18:07 | EKG REPORT ---
SEVERITY:- ABNORMAL ECG - SINUS RHYTHM PROBABLE LEFT ATRIAL ABNORMALITY LEFT AXIS DEVIATION LEFT VENTRICULAR HYPERTROPHY ANTERIOR Q WAVES, POSSIBLY DUE TO [facility] : Confirmed by: David Watkins 26-Jan-2020 18:06:55
== END 2020-01-26 10:47 | disposition home or self-care (01) ==
LOC: ER 01:03
DX: R07.89 Other chest pain (principal); R07.81 Pleurodynia; I10 Essential (primary) hypertension; R51.9 Headache, unspecified; R06.02 Shortness of breath; R11.2 Nausea with vomiting, unspecified; R05 Cough; R20.0 Anesthesia of skin; R20.2 Paresthesia of skin; F17.200 Nicotine dependence, unspecified, uncomplicated
CPT/HCPCS: 36415; 71046; 80053; 82550; 82553; 84484; 85025; 85379; 93005; 93010; 99285

== ENCOUNTER 2020-02-13 23:02 | Emergency (ER) | payer BC ==
[2020-02-13 23:08] VITALS: BP 147/103
[2020-02-13] MEDS ORDERED: HYDROCODONE/ACETAMINOPHEN 5-325 MG TABLET PO ONE (23:18)
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
[2020-02-14] MEDS ORDERED: HYDROCODONE/ACETAMINOPHEN 5-325 MG (6 TAB/ER DISP) PO PRN (01:07)
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
== END 2020-02-14 01:20 | disposition home or self-care (01) ==
LOC: ER 23:02
DX: S01.511A Laceration without foreign body of lip, initial encounter (principal); Y04.2XXA Assault by strike against or bumped into by another person, initial encounter; F17.200 Nicotine dependence, unspecified, uncomplicated; I10 Essential (primary) hypertension
CPT/HCPCS: 70486; 99284